=== PATIENT | male | born 1950 | race Caucasian/White ===

== ENCOUNTER 2018-09-01 23:42 | Inpatient (IN) | payer MEDICARE ==
[~2018-09-01] VITALS: Ht 185.4 cm; Wt 121.6 kg
[2018-09-01] MEDS ORDERED: ATOR40TA PO (23:55)
[2018-09-01] MEDS ORDERED: DOXY100C41 PO (23:55)
[2018-09-01] MEDS ORDERED: HEPA500034 SUBCUT (23:55)
[2018-09-01] MEDS ORDERED: ASPI-605 PO (23:55)
[2018-09-01] MEDS ORDERED: FURO20TA4 PO (23:55)
[2018-09-02] MEDS ORDERED: MAGNESIUM HYDROXIDE 30 ML LIQUID UDC PO PRN (00:15)
[2018-09-02] MEDS ORDERED: LORAZEPAM 1 MG TABLET PO PRN (00:15)
[2018-09-02 02:54] VITALS: BP 136/82
[2018-09-02 07:30] VITALS: BP 140/94
[2018-09-02] MEDS: ASPIRIN EC 81 MG TABLET.DR PO SCH (08:19)
[2018-09-02] MEDS: DOXYCYCLINE HYCLATE 100 MG TABLET PO SCH ×2 (08:19→16:33)
[2018-09-02] MEDS: FUROSEMIDE 20 MG TABLET PO SCH (08:19)
[2018-09-02] MEDS ORDERED: HEPARIN SODIUM,PORCINE 5,000 UNITS/ML VIAL SQ SCH (09:00)
[2018-09-02 16:15] VITALS: BP 144/91
[2018-09-02 20:26] VITALS: BP 142/88
[2018-09-02] MEDS: ATORVASTATIN 40 MG TABLET PO SCH (20:32)
[2018-09-02] MEDS ORDERED: TRAZODONE 50 MG TABLET PO SCH (22:00)
[2018-09-02] MEDS: DIVALPROEX 500 MG TABLET.DR PO SCH (23:17)
[2018-09-03 07:30] VITALS: BP 140/79
[2018-09-03] MEDS: DOXYCYCLINE HYCLATE 100 MG TABLET PO SCH ×2 (08:41→16:14)
[2018-09-03] MEDS: FUROSEMIDE 20 MG TABLET PO SCH (08:42)
[2018-09-03] MEDS: DIVALPROEX 500 MG TABLET.DR PO SCH ×3 (08:42→23:33)
[2018-09-03] MEDS: ASPIRIN EC 81 MG TABLET.DR PO SCH (08:42)
[2018-09-03 09:40] LABS: BASOPHILS # (AUTO) 0.1 K/uL (0.0-8.0); BASOPHILS % (AUTO) 0.8 % (0.0-2.0); EOSINOPHILS # (AUTO) 0.2 K/uL (0.0-0.7); EOSINOPHILS % (AUTO) 2.9 % (0.0-7.0); HEMATOCRIT 50.1 % (36.7-47.1); HEMOGLOBIN 16.5 g/dL (12.5-16.3); LYMPHOCYTES # (AUTO) 1.8 K/uL (20.0-40.0); MEAN CORPUSCULAR HEMOGLOBIN 26.4 uug (23.8-33.4); MEAN CORPUSCULAR HGB CONC 33 g/dL (32.5-36.3); MONOCYTES # (AUTO) 0.4 K/uL (2.0-10.0); MONOCYTES % (AUTO) 6.8 % (0.0-11.0); NEUTROPHILS # (AUTO) 3.9 K/uL (1.8-8.9); NEUTROPHILS % (AUTO) 61.5 % (38.5-71.5); PLATELET COUNT (AUTO) 169 K/uL (152-348); RED BLOOD CELL COUNT(AUTO) 6.26 MIL/uL (4.06-5.63); WHITE BLOOD COUNT (AUTO) 6.3 K/uL (3.6-10.2)
[2018-09-03 09:47] LABS: BILIRUBIN,TOTAL 0.7 mg/dL (0.2-1.0); CREATININE 1.3 mg/dL (0.6-1.3); PHOSPHOROUS 3.6 mg/dL (2.5-4.9); POTASSIUM 4.3 mmol/L (3.5-5.1); TOTAL PROTEIN, SERUM 7.1 g/dL (6.4-8.2)
[2018-09-03 10:08] LABS: THYROID STIMULATING HORMONE 0.544 mIU/mL (0.358-3.740)
[2018-09-03] MEDS: ACETAMINOPHEN 325 MG TABLET PO PRN (11:56)
[2018-09-03 16:00] VITALS: BP 154/72
[2018-09-03 20:06] VITALS: BP 112/76
[2018-09-03] MEDS: ARIPIPRAZOLE 5 MG TABLET PO SCH ×2 (21:45→23:33)
[2018-09-03] MEDS: ATORVASTATIN 40 MG TABLET PO SCH ×2 (21:59→23:33)
[2018-09-04 07:30] VITALS: BP 150/93
[2018-09-04] MEDS: ARIPIPRAZOLE 5 MG TABLET PO SCH ×3 (08:56→23:44)
[2018-09-04] MEDS: DOXYCYCLINE HYCLATE 100 MG TABLET PO SCH ×2 (08:57→17:57)
[2018-09-04] MEDS: ASPIRIN EC 81 MG TABLET.DR PO SCH (08:57)
[2018-09-04] MEDS: FUROSEMIDE 20 MG TABLET PO SCH (08:57)
[2018-09-04] MEDS: DIVALPROEX 500 MG TABLET.DR PO SCH ×3 (08:57→23:44)
[2018-09-04 16:00] VITALS: BP 122/56
[2018-09-04 21:00] VITALS: BP 123/80
[2018-09-04] MEDS: ATORVASTATIN 40 MG TABLET PO SCH ×2 (21:59→23:44)
[2018-09-05 07:30] VITALS: BP 143/86
[2018-09-05] MEDS: DOXYCYCLINE HYCLATE 100 MG TABLET PO SCH ×2 (08:01→16:28)
[2018-09-05] MEDS: FUROSEMIDE 20 MG TABLET PO SCH (08:02)
[2018-09-05] MEDS: DIVALPROEX 500 MG TABLET.DR PO SCH ×2 (08:02→21:55)
[2018-09-05] MEDS: ASPIRIN EC 81 MG TABLET.DR PO SCH (08:02)
[2018-09-05] MEDS: ARIPIPRAZOLE 5 MG TABLET PO SCH ×2 (08:02→21:55)
[2018-09-05 16:00] VITALS: BP 139/86
[2018-09-05 20:59] VITALS: BP 154/83
[2018-09-05] MEDS: TEMAZEPAM 7.5 MG CAPSULE PO PRN (23:05)
[2018-09-06 07:55] VITALS: BP 139/93
[2018-09-06] MEDS: ASPIRIN EC 81 MG TABLET.DR PO SCH (08:06)
[2018-09-06] MEDS: DOXYCYCLINE HYCLATE 100 MG TABLET PO SCH ×2 (08:06→16:58)
[2018-09-06] MEDS: ARIPIPRAZOLE 5 MG TABLET PO SCH ×2 (08:06→20:30)
[2018-09-06] MEDS: DIVALPROEX 500 MG TABLET.DR PO SCH ×2 (08:06→20:30)
[2018-09-06] MEDS: FUROSEMIDE 20 MG TABLET PO SCH (08:06)
[2018-09-06] MEDS: ACETAMINOPHEN 325 MG TABLET PO PRN (12:05)
[2018-09-06] MEDS: NEOMY/BACITRAC/POLYMI OINT 28.35 GM TUBE TOP SCH ×2 (16:58→20:31)
[2018-09-06 20:00] VITALS: BP 139/77
[2018-09-06] MEDS: ATORVASTATIN 40 MG TABLET PO SCH (20:30)
[2018-09-06] MEDS: TEMAZEPAM 7.5 MG CAPSULE PO PRN (23:03)
[2018-09-07 07:30] VITALS: BP 141/87
[2018-09-07] MEDS: DIVALPROEX 500 MG TABLET.DR PO SCH ×2 (08:22→20:06)
[2018-09-07] MEDS: ASPIRIN EC 81 MG TABLET.DR PO SCH (08:22)
[2018-09-07] MEDS: NEOMY/BACITRAC/POLYMI OINT 28.35 GM TUBE TOP SCH ×2 (08:23→20:07)
[2018-09-07] MEDS: ARIPIPRAZOLE 5 MG TABLET PO SCH ×2 (08:23→20:06)
[2018-09-07] MEDS: FUROSEMIDE 20 MG TABLET PO SCH (08:23)
[2018-09-07] MEDS: DOXYCYCLINE HYCLATE 100 MG TABLET PO SCH ×2 (08:23→16:17)
[2018-09-07 15:39] VITALS: BP 147/90
[2018-09-07] MEDS: ATORVASTATIN 40 MG TABLET PO SCH (20:06)
[2018-09-07 20:09] VITALS: BP 161/86
[2018-09-08] MEDS: ASPIRIN EC 81 MG TABLET.DR PO SCH (08:05)
[2018-09-08] MEDS: FUROSEMIDE 20 MG TABLET PO SCH (08:05)
[2018-09-08] MEDS: DOXYCYCLINE HYCLATE 100 MG TABLET PO SCH (08:05)
[2018-09-08] MEDS: NEOMY/BACITRAC/POLYMI OINT 28.35 GM TUBE TOP SCH (08:05)
[2018-09-08] MEDS ORDERED: DIVALPROEX 500 MG TABLET.DR PO SCH ×2 (09:00→21:00)
[2018-09-08] MEDS ORDERED: ARIPIPRAZOLE 5 MG TABLET PO SCH ×2 (09:00→17:00)
== END 2018-09-08 09:30 | disposition home or self-care (01) | DRG 885 ==
LOC: ER 23:55 → GPS 09-02 00:34
PROVIDERS: ADMIT Psychiatry & Neurology Psychiatry; ATTEND Nurse Practitioner Acute Care
PROC: 0HBRXZZ Excision of Toe Nail, External Approach (ICD-10-PCS; principal; 2018-09-07)
DX: F31.64 Bipolar disorder, current episode mixed, severe, with psychotic features (principal); L03.116 Cellulitis of left lower limb; L97.228 Non-pressure chronic ulcer of left calf with other specified severity; E78.5 Hyperlipidemia, unspecified; Z79.82 Long term (current) use of aspirin; Z79.899 Other long term (current) drug therapy; I69.322 Dysarthria following cerebral infarction; R40.2362 Coma scale, best motor response, obeys commands, at arrival to emergency department; R40.2142 Coma scale, eyes open, spontaneous, at arrival to emergency department; R40.2252 Coma scale, best verbal response, oriented, at arrival to emergency department; M79.89 Other specified soft tissue disorders; L60.3 Nail dystrophy; I87.8 Other specified disorders of veins; E66.9 Obesity, unspecified; Z68.35 Body mass index [BMI] 35.0-35.9, adult; R07.81 Pleurodynia
CPT/HCPCS: 36415; 71101; 83735; 84100; 84443; 85025; 93005; A4663